=== PATIENT | female | born 1980 | race Hispanic/Latino ===

== ENCOUNTER → 2018-09-17 14:10 | Outpatient (CLI) | payer OTHER, SELFPAY ==
[2018-09-17 15:02] LABS: Add Manual Diff / Slide Review NO; Basophils Absolute Auto 0 /uL (0-100); Basophils Percent Auto 0.2 % (0-2); Eosinophils Absolute Auto 0 /uL (0-450); Eosinophils Percent Auto 0.7 % (2-4); Hematocrit 31.3 % (36-46); Lymphocytes Absolute Auto 1500 /uL (1100-4500); Lymphocytes Percent Auto 25.5 % (25-40); Mean Corpuscular Hemoglobin 23.4 PG (26-34); Mean Corpuscular Volume 73.2 fL (80-100); Monocytes Absolute Auto 500 /uL (0-900); Neutrophils Absolute Auto 3900 /uL (1500-7000); Neutrophils Percent Auto 64.6 % (50-75); Platelet Count 264 X10^3/uL (150-400); Red Blood Cell Count 4.27 X10^6/uL (4.0-5.2)
[2018-09-17 15:12] LABS: Alanine Aminotransferase 11 IU/L (9-52); Albumin Globulin Ratio 1.3 (1.0-2.8); Alkaline Phosphatase 52 U/L (38-126); Amylase 76 U/L (30-110); Aspartate Aminotransferase 16 IU/L (14-36); Bilirubin Total 0.1 mg/dL (0.2-1.3); Blood Urea Nitrogen 14 mg/dL (7-17); Calcium 8.7 mg/dL (8.4-10.2); Carbon Dioxide 27 mmol/L (22-32); Chloride 104 mmol/L (98-107); Estimated Glomerular Filt Rate > 60.0 mL/min (>60); Globulin 3.2 g/dL (1.7-4.1); Glucose 92 mg/dL (70-100); HEMOLYSIS < 15 (0-50); Potassium 3.8 mmol/L (3.4-5.1); Sodium 139 mmol/L (137-145); Total Protein 7.2 g/dL (6.3-8.2)
[2018-09-17 15:44] LABS: Estradiol, Total 41.8 pg/mL
[2018-09-17 15:48] LABS: Pregnancy Test Urine Negative (Negative)
[2018-09-17 16:18] LABS: TSH w/ Reflex to FT4 2.12 uIU/mL (0.47-4.68)
== END ==
PROVIDERS: PCP Family Medicine; Visit Provider Family Medicine
DX: R53.83 Other fatigue (principal); R10.9 Unspecified abdominal pain; N91.5 Oligomenorrhea, unspecified
CPT/HCPCS: 36415; 80053; 81025; 82150; 82670; 83001; 83516; 84443; 85025

== ENCOUNTER → 2019-01-06 08:53 | Outpatient (CLI) | payer OTHER, SELFPAY ==
[2019-01-06 09:55] LABS: Cholesterol 190 mg/dL (140-199); HDL Cholesterol 64 mg/dL (40-60); LDL Cholesterol Calculated 112 mg/dL (<100); Triglycerides 68 mg/dL (35-150)
[2019-01-06 09:59] LABS: Reticulocyte Count, Percent 0.6 % (1.06-2.63)
[2019-01-06 10:07] LABS: HEMOLYSIS < 15 (0-50); Iron 44 ug/dL (37-170)
[2019-01-06 10:18] LABS: Percent Iron Saturation 11 % (15-50); Total Iron Binding Capacity 416 ug/dL (265-497); Transferrin 333 mg/dL (206-381)
[2019-01-06 10:27] LABS: Ferritin 4.7 ng/mL (6.27-137)
[2019-01-06 10:57] LABS: Folate 16.4 ng/mL (2.76-20.0); Vitamin B12 634 pg/mL (239-931)
[2019-01-08 15:30] LABS: Haptoglobin 193 mg/dL (43-212)
== END ==
PROVIDERS: Family Medicine; PCP Family Medicine; Visit Provider Family Medicine
DX: Z13.220 Encounter for screening for lipoid disorders (principal); D50.9 Iron deficiency anemia, unspecified
CPT/HCPCS: 36415; 80061; 82607; 82728; 82746; 83010; 83540; 83550; 85045

== ENCOUNTER → 2019-02-22 10:35 | Outpatient (CLI) | payer OTHER, SELFPAY ==
[2019-02-22 12:52] LABS: Prolactin 6.1 ng/mL (3.0-18.6)
== END ==
PROVIDERS: PCP Family Medicine; Visit Provider Specialist
DX: N91.5 Oligomenorrhea, unspecified (principal)
CPT/HCPCS: 36415; 83001; 84146

== ENCOUNTER → 2020-06-07 10:21 | Outpatient (CLI) | payer OTHER, SELFPAY ==
[2020-06-07] MEDS: COVID-19 VACC #1, MRNA(MOD) 100 MCG/0.5 ML VIAL IM (10:28)
== END ==
PROVIDERS: PCP Family Medicine; Visit Provider Internal Medicine
DX: Z23 Encounter for immunization (principal)
CPT/HCPCS: 0011A; 91301

== ENCOUNTER → 2020-07-05 10:20 | Outpatient (CLI) | payer OTHER, SELFPAY ==
[2020-07-05] MEDS: COVID-19 VACC #2, MRNA(MOD) 100 MCG/0.5 ML VIAL IM (10:28)
== END ==
PROVIDERS: PCP Family Medicine; Visit Provider Internal Medicine
DX: Z23 Encounter for immunization (principal)
CPT/HCPCS: 0012A; 91301

== ENCOUNTER → 2021-01-26 15:06 | Outpatient (CLI) | payer OTHER, SELFPAY ==
[2021-01-28 13:33] LABS: Interpretation Negative (Negative)
== END ==
PROVIDERS: PCP Family Medicine; Referring Provider Family Medicine; Visit Provider Family Medicine
DX: R10.9 Unspecified abdominal pain (principal)
CPT/HCPCS: 83013

== ENCOUNTER 2021-02-27 23:48 | Observation (INO) | payer OTHER, SELFPAY ==
[2021-02-27 23:54] VITALS: BP 100/60; PULSE 50; RESP 24; TEMP 36.7; O2SAT 99
[2021-02-28] VITALS (36 sets, daily range): BP systolic 98–150; BP diastolic 64–86; PULSE 51–92; RESP 10–28; TEMP 36.2–37.2; O2SAT 83–100; BMI 23.8
--- NOTE | 2021-02-28 | PATH_ITS ---
[facility] Accession Number: [id number] . 01 Material submitted: . gallbladder - GALLBLADDER . 02 Diagnosis: Gallbladder, Cholecystectomy: Mild chronic cholecystitis, cholesterolosis, and cholelithiasis. REPLACED BY [facility] 03/05/2021 1649 Local . 02 Electronically signed: . Seema Driver MD, Pathologist NPI- [id number] . 01 Gross description: . The specimen is received in formalin labeled gallbladder and consists of a 7.5 x 5.0 x 4.0 cm intact gallbladder with a 0.3 cm in diameter cystic duct. The serosa is pink-taylor and smooth. Opening reveals green viscous bile with multiple green multifaceted choleliths and cholelith fragments ranging from 0.1 to 1.4 cm. The mucosa is solis-green and velvety and the wall thickness measures 0.1 cm. Ion Implant Machine Operator sections are submitted, to include the en face cystic duct margin (blue) in cassette A1. ([id number]) /REPLACED BY [facility] 03/01/2021 1749 Local . 02 Pathologist provided ICD-10: K81.1 . 02 CPT . 372280 Performed at: 01 [facility] Cytology [address] [facility], [place], [place] [id number] MD Luigi Brady MD Phone: [phone] Performed at: 02 [facility] [address] [place], [place] [id number] MD Mar Hatch MD Phone: [phone]
[2021-02-28] MEDS: KETOROLAC 30 MG/ML VIAL 15 MG IV (00:08)
[2021-02-28] MEDS: ONDANSETRON 4 MG/2 ML INJ IV ×2 (00:08→14:35)
[2021-02-28 00:12] LABS: Add Manual Diff / Slide Review NO; Basophils Absolute Auto 0 /uL (0-100); Basophils Percent Auto 0.1 % (0-2); Eosinophils Absolute Auto 0 /uL (0-450); Eosinophils Percent Auto 0.6 % (2-4); Hematocrit 34.8 % (36-46); Hemoglobin 11.9 g/dL (12.0-16.0); Lymphocytes Absolute Auto 4400 /uL (1100-4500); Lymphocytes Percent Auto 51.3 % (25-40); Mean Corpuscular HGB Conc 34.2 % (30-36); Mean Corpuscular Hemoglobin 28.9 PG (26-34); Mean Corpuscular Volume 84.5 fL (80-100); Monocytes Absolute Auto 700 /uL (0-900); Monocytes Percent Auto 8.3 % (3-14); Neutrophils Absolute Auto 3400 /uL (1500-7000); Neutrophils Percent Auto 39.7 % (50-75); Platelet Count 243 X10^3/uL (150-400); Red Blood Cell Count 4.12 X10^6/uL (4.0-5.2); Red Cell Distribution Width 13.1 % (11.6-14.8); White Blood Cell Count 8.6 X10^3/uL (4.5-11.0)
[2021-02-28 00:19] LABS: Alanine Aminotransferase 35 IU/L (<35); Albumin 4.3 g/dL (3.5-5.0); Albumin Globulin Ratio 1.5 (1.0-2.8); Alkaline Phosphatase 46 U/L (38-126); Aspartate Aminotransferase 54 IU/L (14-36); BUN Creatinine Ratio 26.2 (6-22); Bilirubin Total 0.3 mg/dL (0.2-1.3); Blood Urea Nitrogen 17 mg/dL (7-17); Calcium 9.7 mg/dL (8.4-10.2); Carbon Dioxide 32 mmol/L (22-32); Chloride 102 mmol/L (98-107); Estimated Glomerular Filt Rate > 60.0 mL/min (>60); Globulin 2.9 g/dL (1.7-4.1); Glucose 156 mg/dL (70-100); HEMOLYSIS 16 (0-50); Lipase 123 U/L (23-300); Potassium 3.2 mmol/L (3.4-5.1); Sodium 138 mmol/L (137-145); Total Protein 7.2 g/dL (6.3-8.2)
--- NOTE | 2021-02-28 00:30 | DI.US.S_ITS ---
PROCEDURE: US ABDOMEN LIMITED INDICATIONS: RUQ PAIN TECHNIQUE: Real-time scanning was performed of the abdominal, with image documentation. COMPARISON: None. FINDINGS: Liver: Liver is normal in size and homogeneous in echotexture. Gallbladder: Mildly distended. Multiple mobile gallstones. Normal gallbladder wall thickness. No pericholecystic fluid. Positive sonographic Agustin's sign. Biliary ducts: Intrahepatic bile ducts are non-dilated. Extrahepatic bile duct caliber measures 8 mm. Normal is 6-7 mm or less in diameter, or 10 mm or less post-cholecystectomy. Pancreas: Visualized portions of the pancreas are sonographically normal. IMPRESSION: Prominent gallbladder with multiple gallstones. Positive sonographic Agustin's sign. Findings concerning for acute cholecystitis. Comment: Findings were discussed with Christina Hsieh at the time of dictation. Dictated by: Khurram Foster M.D. on 02/28/2021 at 1:18 Approved by: Khurram Foster M.D. on 02/28/2021 at 1:22
--- NOTE | 2021-02-28 01:39 | ED_ITS ---
HPI - Abdominal Pain General Chief Complaint: Abdominal Pain Stated Complaint: abd pain/bloated x2 hours Time Seen by Provider: 02/28/21 00:29 Source: patient Mode of arrival: Ambulatory History of Present Illness HPI narrative: Patient is a 40-year-old female who is healthy presenting with sudden onset of epigastric pain and right upper quadrant pain. She says she feels bloated and nauseous. Pain is quite intense. No fever or chills. This is never happened to her before. She denies any chest pain. No shortness of breath. Related Data Previous Rx's Medication Instructions Recorded ferrous sulfate 325 mg (65 mg 325 mg PO DAILY #30 tab 01/18/19 iron) tablet fluticasone propionate 50 1 spray INTRANASAL BID #9.9 ml 06/30/20 mcg/actuation nasal spray,suspension (Flonase Allergy Relief) Allergies Allergy/AdvReac Type Severity Reaction Status Date / Time No Known Drug Allergies Allergy Verified 06/07/20 10:25 Review of Systems Review of Systems Narrative: GENERAL: Denies chills, fatigue, malaise, fever, sweats, travel HEENT: Denies sinus pain, ear pain, sore throat, difficulty swallowing, neck pain RESPIRATORY: Denies dyspnea, cough, wheezing, hemoptysis, sputum. CARDIOVASCULAR: Denies chest pain, palpitations, orthopnea, edema GASTROINTESTINAL: See HPI : Denies dysuria, frequency, incontinence, hematuria, urinary retention, flank pain. MUSCULOSKELETAL: Denies weakness, joint pain, or bony pain SKIN: No rash, no erythema, no pruritus NEUROLOGIC: Denies weakness, dizziness, headache, numbness, change in speech, confusion PSYCHIATRIC: No concerning psychosocial issues. 12 point review of systems is negative except for those stated above and HPI Patient History Social History Smoking Status: Never smoker alcohol intake: current (occasionally) substance use type: does not use Smoking Status: Never smoker Exam Initial Vital Signs Initial Vital Signs: Vital Signs Temperature 98.0 F 02/27/21 23:54 Pulse Rate 50 L 02/27/21 23:54 Respiratory Rate 24 02/27/21 23:54 Blood Pressure 100/60 02/27/21 23:54 Pulse Oximetry 99 02/27/21 23:54 GENERAL: Alert 40-year-old female appears uncomfortable and in no acute distress. HEENT: Head atraumatic,EOMI, pupils reactive, face symmetric, moist mucous membr anes CARDIOVASCULAR: Regular rate and rhythm without murmurs, rubs or gallops. RESPIRATORY: Breath sounds equal bilaterally, no wheezes rales or rhonchi. ABDOMEN: Soft, tender right upper quadrant pain is positive Agustin sign tender in epigastric pain no lower abdominal pain yudith] : No CVA tenderness EXTREMITIES: Normal range of motion, no clubbing or edema. Neurovascularly intact NEUROLOGICAL: Alert and oriented x4. With no deficit SKIN: Warm, dry, no laceration, no petechiae, no rashes or lesions. Course Orders Ordered: ED Orders 02/27/21 23:54 EKG-12 Lead Stat 02/27/21 23:57 Complete Blood Count AUTO DIFF Stat Comprehensive Metabolic Panel Stat Lipase Stat 02/28/21 00:30 US abdomen limited Stat Sodium Chloride (Normal Saline 0.9%) 1,000 mls @ 100 mls/hr IV CONT SILVIO Last Admin: 02/28/21 02:16 Dose: 100 mls/hr Documented by: HANDY Discontinued Medications Piperacillin Sod/Tazobactam (Sod 4.5 gm/ Sodium Chloride) 100 mls @ 200 mls/hr IV NOW ONE Stop: 02/28/21 01:55 Last Infusion: 02/28/21 02:52 Dose: 0 mls/hr Documented by: Admin: 02/28/21 02:16 Dose: 200 mls/hr Documented by: HANDY Ketorolac Tromethamine (Ketorolac 30 Mg/Ml Vial) 15 mg IV NOW ONE Stop: 02/28/21 00:03 Last Admin: 02/28/21 00:08 Dose: 15 mg Documented by: ELAINE Ondansetron HCl (Ondansetron 4 Mg/2 Ml Inj) 4 mg IV NOW ONE Stop: 02/28/21 00:03 Last Admin: 02/28/21 00:08 Dose: 4 mg Documented by: ELAINE Vital Signs Vital signs: Vital Signs - 8 hr 02/27/21 23:54 Temperature 98.0 F Pulse Rate 50 L Respiratory Rate 24 Blood Pressure 100/60 Pulse Oximetry 99 MDM - Abdominal Pain Lab Data Result diagrams: 02/27/21 23:57 02/27/21 23:57 Labs: Lab Results 02/27/21 02/27/21 Range/Units 23:57 23:57 WBC 8.6 (4.5-11.0) X10^3/uL RBC 4.12 (4.0-5.2) X10^6/uL Hgb 11.9 L (12.0-16.0) g/dL Hct 34.8 L (36-46) % MCV 84.5 (80-100) fL MCH 28.9 (26-34) PG MCHC 34.2 (30-36) % RDW 13.1 (11.6-14.8) % Plt Count 243 (150-400) X10^3/uL Neut % (Auto) 39.7 L (50-75) % Lymph % (Auto) 51.3 H (25-40) % [place] % (Auto) 8.3 (3-14) % Eos % (Auto) 0.6 L (2-4) % Baso % (Auto) 0.1 (0-2) % Neut # (Auto) 3400 (3300-4575) /uL Lymph # (Auto) 4400 (2481-0435) /uL [place] # (Auto) 700 (0-900) /uL Eos # (Auto) 0 (0-450) /uL Baso # (Auto) 0 (0-100) /uL Sodium 138 (137-145) mmol/L Potassium 3.2 L (3.4-5.1) mmol/L Chloride 102 (98-107) mmol/L Carbon Dioxide 32 (22-32) mmol/L BUN 17 (7-17) mg/dL Creatinine 0.65 (0.52-1.04) mg/dL Estimated GFR > 60.0 (>60) mL/min BUN/Creatinine Ratio 26.2 H (6-22) Glucose 156 H (70-100) mg/dL Calcium 9.7 (8.4-10.2) mg/dL Total Bilirubin 0.3 (0.2-1.3) mg/dL AST 54 H (14-36) IU/L ALT 35 H (<35) IU/L Alkaline Phosphatase 46 (38-126) U/L Total Protein 7.2 (6.3-8.2) g/dL Albumin 4.3 (3.5-5.0) g/dL Globulin 2.9 (1.7-4.1) g/dL Albumin/Globulin Ratio 1.5 (1.0-2.8) Lipase 123 (23-300) U/L Imaging Data US - abdomen: Radiologist's Impression: PROCEDURE:? US ABDOMEN LIMITED ? INDICATIONS:? RUQ PAIN ? TECHNIQUE:? Real-time scanning was performed of the abdominal, with image documentation.? ? COMPARISON:? None. ? FINDINGS:? ? Liver:? Liver is normal in size and homogeneous in echotexture.? ? Gallbladder:? Mildly distended.? Multiple mobile gallstones. Normal gallbladder wall thickness. No pericholecystic fluid.? Positive sonographic Agustin's sign. ? Biliary ducts:? Intrahepatic bile ducts are non-dilated.? Extrahepatic bile duct caliber measures 8 mm.? Normal is 6-7 mm or less in diameter, or 10 mm or less post-cholecystectomy.? ? Pancreas:? Visualized portions of the pancreas are sonographically normal.? IMPRESSION:? Prominent gallbladder with multiple gallstones.? Positive sonographic Agustin's sign.? Findings concerning for acute cholecystitis. ? Comment: Findings were discussed with Christina Hsieh at the time of dictation. ? ? ? Dictated by: Khurram Foster M.D. on 02/28/2021 at 1:18 ? ? Approved by: Khurram Foster M.D. on 02/28/2021 at 1:22 ? ECG Data Interpretation: Normal sinus rhythm rate 50 p.r. interval 164 QRS [address] changes MDM Narrative Medical decision making narrative: The patient is having epigastric and right upper quadrant pain ultrasound does confirm her acute cholecystitis multiple mobile gallstones. Mild elevation in liver enzymes but no elevation in bilirubin normal common bile duct. She is afebrile without leukocytosis. Patient's pain is significantly controlled after 1 dose of toradol 01:53 Dr. Casillas, surgery has been attained patient's symptoms test results agrees with admission and surgery. Requests Anastasia Discharge Plan Departure Patient Disposition: Admitted to Surgery Clinical Impression: Cholecystitis Admit Date/Time: 02/28/21 02:34 Admit Provider: Jonh Portillo
[2021-02-28] MEDS: SODIUM CHLORIDE 0.9% 1,000 ML 100 ML IV (02:16)
[2021-02-28] MEDS: PIPERACILLIN/TAZO 4.5 GM in SODIUM CHLORIDE 0.9% 100 ML 200 ML IV (02:16)
--- NOTE | 2021-02-28 02:53 | PC.NURSE ---
She is now on a floor bed,pain control stated to me,NPO.
[2021-02-28 06:36] LABS: COVID19 -Nasal RAPID Negative (Negative)
--- NOTE | 2021-02-28 11:31 | PC.NURSE ---
Report given to NETWORKING SPECIALIST @ 1130. Pt being transferred to OR in at this time.
[2021-02-28] MEDS: LACTATED RINGERS 1,000 ML 42 ML IV (11:50)
--- NOTE | 2021-02-28 12:01 | P.HP_ITS ---
History of Present Illness History of Present Illness Chief complaint: abd pain/bloated x2 hours Narrative: 40-year-old woman who presented to the of the emergency room for evaluation of acute abdominal pain. She has had previous episodes of biliary colic however she has a severe episode of epigastric pain/right upper quadrant pain associated with nausea vomiting and unremitting. At the emergency room she was afebrile WBC 9 total bilirubin 0.3, AST 54, ALT 35. Ultrasound demonstrated gallstones she had a positive Agustin's sign on examination. She was started on Zosyn and with pain medication her abdominal pain significantly improved. Patient History Family & Social History Tobacco & Substance use: Smoking Status Never smoker alcohol intake current Meds Home Medications and Allergies Home Medications Medication Instructions Recorded Confirmed Type magnesium 1 tab PO DAILY 02/28/21 02/28/21 History multivitamin 1 cap DAILY 02/28/21 02/28/21 History Allergies Allergy/AdvReac Type Severity Reaction Status Date / Time No Known Drug Allergies Allergy Verified 02/28/21 11:45 Exam Vital Signs (past 8 hours): - 02/28/21 04:30 02/28/21 05:00 02/28/21 05:16 Temperature Pulse Rate 56 L 59 L 77 Respiratory Rate 12 13 28 H Blood Pressure 98/64 Pulse Oximetry 83 L 02/28/21 05:30 02/28/21 05:59 02/28/21 06:00 Temperature Pulse Rate 56 L 80 54 L Respiratory Rate 12 18 13 Blood Pressure 98/64 Pulse Oximetry 97 95 98 02/28/21 06:32 02/28/21 07:00 02/28/21 07:30 Temperature Pulse Rate 73 60 54 L Respiratory Rate 11 L 17 Blood Pressure Pulse Oximetry 83 L 97 99 02/28/21 08:00 02/28/21 08:30 02/28/21 09:00 Temperature Pulse Rate 54 L 57 L 60 Respiratory Rate 10 L 19 27 H Blood Pressure Pulse Oximetry 97 96 99 02/28/21 09:30 02/28/21 10:00 02/28/21 10:30 Temperature Pulse Rate 62 51 L 55 L Respiratory Rate 28 H 18 17 Blood Pressure Pulse Oximetry 99 99 98 02/28/21 11:00 02/28/21 11:11 02/28/21 11:53 Temperature 98.4 F Pulse Rate 55 L 54 L 65 Respiratory Rate 22 15 14 Blood Pressure 115/66 107/68 Pulse Oximetry 99 100 100 Oxygen Delivery Method Room Air Narrative Exam Narrative: General adult female alert oriented no acute distress Chest nonlabored respirations Abdomen positive Agustin sign. scar. Extremities warm well perfused Objective Labs Result Diagrams: 02/27/21 23:57 02/27/21 23:57 Labs: Laboratory Results - last 24 hr 02/27/21 02/27/21 02/28/21 23:57 23:57 06:10 WBC 8.6 RBC 4.12 Hgb 11.9 L Hct 34.8 L MCV 84.5 MCH 28.9 MCHC 34.2 RDW 13.1 Plt Count 243 Neut % (Auto) 39.7 L Lymph % (Auto) 51.3 H [place] % (Auto) 8.3 Eos % (Auto) 0.6 L Baso % (Auto) 0.1 Neut # (Auto) 3400 Lymph # (Auto) 4400 [place] # (Auto) 700 Eos # (Auto) 0 Baso # (Auto) 0 Sodium 138 Potassium 3.2 L Chloride 102 Carbon Dioxide 32 BUN 17 Creatinine 0.65 Estimated GFR > 60.0 BUN/Creatinine Ratio 26.2 H Glucose 156 H Calcium 9.7 Total Bilirubin 0.3 AST 54 H ALT 35 H Alkaline Phosphatase 46 Total Protein 7.2 Albumin 4.3 Globulin 2.9 Albumin/Globulin Ratio 1.5 Lipase 123 SARS-CoV-2 (PCR) Negative Assessment & Plan Assessment and plan (1) Cholecystitis: Status: Acute Assessment & Plan narrative: 40-year-old woman admitted from the emergency room with gallstones and acute cholecystitis. We discussed management of acute cholecystitis and recommended that we proceed with laparoscopic cholecystectomy. Technical details of the operation were discussed with the patient. Operative risks including bleeding infection damage to surrounding structures conversion open bile leak were discussed. Her questions have been answered and she is in agreement with this plan will proceed. Time Spent With Patient Critical Care time: I spent a total of [] minutes of critical care time on this patient's care today; this time is exclusive of procedural time.
[2021-02-28] MEDS: CEFAZOLIN 2 GM/20 ML SYRINGE IV (12:53)
--- NOTE | 2021-02-28 13:11 | SUR.OPER ---
Supine on padded OR bed, head on pillow, safety belt at thigh, left arm padded and tucked at side. Right arm secured on padded arm board <90 degrees abduction. Legs uncrossed. Padded footboard in place. Tape over blanket to secure lower legs.
[2021-02-28] MEDS: BUPIVACAINE 0.25% (PF) VIAL 30 ML INJ (13:20)
--- NOTE | 2021-02-28 14:03 | PM.OP.1 ---
Operative Date/Time/Diagnoses Date of procedure: 02/28/21 Time of procedure: 14:03 Pre-op diagnosis: Acute cholecystitis Post-op diagnosis: same Procedure & Clinicians Procedure: Laparoscopic cholecystectomy Same procedure as scheduled: Yes Indications: Acute cholecystitis with gallstones Surgeon: Korey Stark Yes if Unassisted: Yes Anesthesia Type: General Operative Notes Findings: Acute cholecystitis Specimen(s): other (Gallbladder) Estimated Blood Loss (mL): 10 Procedure in detail: The patient was placed supine on the table and bilateral lower extremity compression devices were applied. Anesthesia was induced they were intubated with an endotracheal tube and received 2g of Ancef. A time-out was performed. They were prepped and draped in sterile fashion. An infraumbilical incision was made, the umbilical stalk was elevated and the fascia was sharply incised entering the abdomen atraumatically. A blunt tip 12mm balloon trocar was then inserted, pneumoperitoneum was established and inspection of the abdomen demonstrated no evidence of injury. They were placed head up and right side up and then a 11 mm port was placed high in the epigastrium and two 5mm in the right upper quadrant. The gallbladder was grasped by the fundus and retracted over the liver and retracted laterally by the infundibulum. The gallbladder was tense and distended consistent with acute cholecystitis. Using electrocautery the lateral plane between the gallbladder and the liver was opened towards the fundus. The gallbladder was then retracted laterally and the medial plane was developed in the same manner. With the gallbladder mobilized the bottom of the cystic plate was visualized. The hepatocystic triangle was meticulosly skeletonized from both the front and the back. Only two structures were then clearly seen entering the gallbladder the cystic duct and the cystic artery. With the critical view of safety fully established the cystic duct was clipped twice proximally and once distally using the 10 mm Weck hemoclip applied under direct visualization and then sharply divided. The cystic artery was divided in the same fashion. The gallbladder was removed from the liver bed using electro cautery. The liver bed was then inspected for hemostasis and this was achieved. The abdomen was irrigated with sterile saline and inspection was made that showed the clips in good position. The specimen was removed using Endo-Catch. The abdomen was desufflated. The umbilical fascia was closed with 0 Vicryl in a [id number] fashion under direct visualization. Skin incisions were irrigated and closed with 4-0 Monocryl. 30 ml of 0.25% bupivacaine was infiltrated into the subcutaneous tissue of the incisions. The wounds were sealed with Dermabond. Patient emerged from anesthesia was extubated and transferred to recovery in stable condition. The sponge and instrument count at the end of the operation was correct. Complications: none Post-operative Condition: stable Disposition: Acute Care
[2021-02-28] MEDS: HYDROMORPHONE 2 MG INJ IV ×2 (14:40→15:03)
[2021-02-28] MEDS: METOCLOPRAMIDE 10 MG/2 ML INJ IV (14:55)
--- NOTE | 2021-02-28 15:06 | SUR.PHASEI ---
1505 hrs: Pt still nauseous s/p Zofran and Reglan administration. QueaseEase aromatherapy applied.
[2021-02-28] MEDS: ACETAMINOPHEN 325 MG TABLET 650 MG PO (15:24)
--- NOTE | 2021-02-28 17:12 | PC.NURSE ---
Pt to room 208 via gurney from PACU. Pt awake, alert and oriented. States she is not having pain but is feeling nauseated after the ride on the gurney from the OR. Nausea abated and Pt requested something to eat. VS stable. SCD's on and running. Pt Spouse at the bedside. Pt denies needs at this time and states she would like to go home in a little while. Dr. Balderas in to see Pt and wrote discharge orders. Pt oriented to room, call light, bed controls and tv controls. Pt agrees to call for assistance as needed.
[2021-02-28] MEDS: ONDANSETRON 4 MG ODT SL (18:55)
[2021-02-28] MEDS: OXYCODONE IR 5 MG TABLET PO (18:55)
[2021-02-28] MEDS: SIMETHICONE 80 MG TABLET PO (18:55)
--- NOTE | 2021-02-28 22:54 | PC.NURSE ---
Patient ready to discharge, spouse present, iv removed and patient up and dressed. GUN REPAIR CLERK reported patient vomited, spoke with patient and she said that she did still have nausea and was vomiting. Spoke with Dr. Balderas and he gave order for her to stay one more night; ok to leave iv out; if vomiting continues into the night give PRN fluids, start NS @ 125/hr.
[2021-03-01 05:16] VITALS: BP 108/60; PULSE 67; RESP 16; TEMP 37.7; O2SAT 96
[2021-03-01 08:42] VITALS: BP 112/70; PULSE 60; RESP 16; TEMP 36.9; O2SAT 98
--- NOTE | 2021-03-01 09:59 | PC.NURSE ---
Addendum entered by Clarisa Houston R.N. 03/01/21 10:19: all discharge instructions was done yesterday. unchanged today. Original Note: pt tolerated general diet. she has been independent in her room and ambulating.
--- NOTE | 2021-03-01 10:33 | CM.IDA ---
Initial DCP Assessment Note Pt is a 40 yo female, resident of [place], now POD#1 from [facility] [address] Dr Balderas PCP: Latonya Hayes Payer: Alessandro Reviewed chart, pt discussed in multidisciplinary rounds this morning. Therapy has cleared pt for return home w/family to assist and pt has planned for home, DC order from Ortho has already been initiated this morning. No needs expected from DC planning team although will remain available in case this changes today. VIN Powell
== END 2021-03-01 10:07 | disposition home or self-care (01) ==
LOC: ED 02-28 01:53 → AC 02-28 02:34
PROVIDERS: Surgery; Admitting Provider Surgery; Emergency Provider Emergency Medicine; PCP Family Medicine; Referring Provider Emergency Medicine; Visit Provider Surgery
PROC: 0FT44ZZ Resection of Gallbladder, Percutaneous Endoscopic Approach (ICD-10-PCS; CPT 47562; principal; 2021-02-28 12:00)
DX: K80.10 Calculus of gallbladder with chronic cholecystitis without obstruction (principal); Z20.822 Contact with and (suspected) exposure to COVID-19
CPT/HCPCS: 47562; 36415; 76705; 80053; 81003; 81025; 83690; 85025; 87635; 93005; 96361; 96365; 96375; 96376; 99220; 99284; C9803; G0378; J0690; J1100; J1170; J1885; J2250; J2405; J2543; J2704; J2765; J3010

== ENCOUNTER → 2021-11-28 10:49 | Outpatient (CLI) | payer OTHER, SELFPAY ==
[2021-03-07 11:44] VITALS: BMI 23.8
--- NOTE | 2021-11-28 | DI.CT.S_ITS ---
PROCEDURE: CT SINUS SCREEN WO CON INDICATIONS: Chronic pansinusitis/headache TECHNIQUE: Noncontrast 3.0 mm axial images acquired from the frontal sinuses to the mid-sella, with coronal and sagittal reformats. For radiation dose reduction, the following was used: automated exposure control, adjustment of mA and/or kV according to patient size. COMPARISON: None. FINDINGS: Image quality: Excellent. Maxillary Sinuses: No bony remodeling or destruction. There is trace right and mild left mucosal thickening. Ethmoid Air Cells: No bony remodeling or destruction. There is trace mucosal thickening bilaterally. Sphenoid Sinuses: No bony remodeling or destruction. Trace debris is present within the left sphenoid sinus. Frontal Sinuses: No bony remodeling or destruction. Sinuses are clear. Ostiomeatal Complexes: No Troy cells. The bilateral ostiomeatal complexes are partially obstructed by mild mucosal thickening. Miscellaneous: Visualized intra-orbital contents are normal. No carlita bullosa or paradoxical turbinate curvature. No nasal septal deviation. IMPRESSION: 1. Mild mucosal thickening of the maxillary sinuses and ethmoid air cells as well as some mucosal thickening at the ostiomeatal complexes suggesting partial obstruction. 2. No bony remodeling or destruction. Dictated by: Esha Sow M.D. on 11/28/2021 at 11:14 Approved by: Esha Sow M.D. on 11/28/2021 at 11:24
== END ==
PROVIDERS: PCP Family Medicine; Referring Provider Otolaryngology; Visit Provider Otolaryngology
DX: J32.4 Chronic pansinusitis (principal); R51.9 Headache, unspecified
CPT/HCPCS: 70486

== ENCOUNTER → 2022-11-21 10:45 | Outpatient (CLI) | payer OTHER, SELFPAY ==
[2021-03-07 11:44] VITALS: BMI 23.8
[2022-11-21 11:44] LABS: Add Manual Diff / Slide Review NO; Basophils Absolute Auto 0 /uL (0-100); Basophils Percent Auto 0.3 % (0-2); Eosinophils Absolute Auto 0 /uL (0-450); Eosinophils Percent Auto 0.7 % (2-4); Hematocrit 38.1 % (36-46); Hemoglobin 12.8 g/dL (12.0-16.0); Lymphocytes Absolute Auto 2200 /uL (1100-4500); Lymphocytes Percent Auto 39.3 % (25-40); Mean Corpuscular HGB Conc 33.4 % (30-36); Mean Corpuscular Hemoglobin 28.1 PG (26-34); Monocytes Absolute Auto 400 /uL (0-900); Monocytes Percent Auto 7.6 % (3-14); Neutrophils Absolute Auto 2900 /uL (1500-7000); Neutrophils Percent Auto 52.1 % (50-75); Platelet Count 222 X10^3/uL (150-400); Red Blood Cell Count 4.54 X10^6/uL (4.0-5.2); Red Cell Distribution Width 13.4 % (11.6-14.8); White Blood Cell Count 5.6 X10^3/uL (4.5-11.0)
[2022-11-21 12:17] LABS: Iron 129 ug/dL (37-170)
[2022-11-21 12:48] LABS: TSH w/ Reflex to FT4 2.53 uIU/mL (0.47-4.68)
[2022-11-21 13:06] LABS: Vitamin B12 554 pg/mL (239-931)
[2022-11-21 16:02] LABS: Vitamin D 25 Hydroxy (D3) 29.7 ng/mL (30.0-100.0)
== END ==
PROVIDERS: PCP Family Medicine; Referring Provider Family Medicine; Visit Provider Family Medicine
DX: D64.9 Anemia, unspecified (principal); R53.83 Other fatigue
CPT/HCPCS: 36415; 82306; 82607; 83540; 84443; 85025

== ENCOUNTER → 2023-08-20 15:49 | Outpatient (CLI) | payer OTHER, SELFPAY ==
[2021-03-07 11:44] VITALS: BMI 23.8
[2023-08-20 16:44] LABS: Add Manual Diff / Slide Review NO; Basophils Absolute Auto 0 /uL (0-100); Basophils Percent Auto 0.4 % (0-2); Eosinophils Absolute Auto 100 /uL (0-450); Eosinophils Percent Auto 0.9 % (2-4); Hematocrit 36.8 % (36-46); Hemoglobin 12.4 g/dL (12.0-16.0); Lymphocytes Absolute Auto 2500 /uL (1100-4500); Lymphocytes Percent Auto 34.7 % (25-40); Mean Corpuscular HGB Conc 33.7 % (30-36); Mean Corpuscular Hemoglobin 28.4 PG (26-34); Mean Corpuscular Volume 84.4 fL (80-100); Monocytes Absolute Auto 600 /uL (0-900); Neutrophils Absolute Auto 3900 /uL (1500-7000); Platelet Count 232 X10^3/uL (150-400); Red Blood Cell Count 4.36 X10^6/uL (4.0-5.2); Red Cell Distribution Width 13.5 % (11.6-14.8); White Blood Cell Count 7.2 X10^3/uL (4.5-11.0)
[2023-08-20 16:54] LABS: Hemoglobin A1C% w Est Avg Glu 5.6 % (4.0-6.0)
[2023-08-20 17:13] LABS: Iron 82 ug/dL (37-170)
[2023-08-20 18:04] LABS: Vitamin B12 489 pg/mL (239-931)
== END ==
PROVIDERS: PCP Family Medicine; Referring Provider Family Medicine; Visit Provider Family Medicine
DX: G62.9 Polyneuropathy, unspecified (principal); E66.3 Overweight
CPT/HCPCS: 36415; 82607; 83036; 83540; 85025

== ENCOUNTER → 2023-11-27 09:13 | Outpatient (CLI) | payer OTHER, SELFPAY ==
[2021-03-07 11:44] VITALS: BMI 23.8
[2023-11-27 09:56] LABS: Add Manual Diff / Slide Review NO; Basophils Absolute Auto 0 /uL (0-100); Basophils Percent Auto 0.2 % (0-2); Eosinophils Absolute Auto 0 /uL (0-450); Eosinophils Percent Auto 0.8 % (2-4); Hematocrit 38.7 % (36-46); Hemoglobin 13.1 g/dL (12.0-16.0); Lymphocytes Absolute Auto 1600 /uL (1100-4500); Mean Corpuscular Hemoglobin 28.7 PG (26-34); Mean Corpuscular Volume 84.6 fL (80-100); Monocytes Absolute Auto 400 /uL (0-900); Monocytes Percent Auto 8.6 % (3-14); Neutrophils Absolute Auto 2700 /uL (1500-7000); Neutrophils Percent Auto 56.4 % (50-75); Platelet Count 222 X10^3/uL (150-400); Red Blood Cell Count 4.58 X10^6/uL (4.0-5.2); Red Cell Distribution Width 13.8 % (11.6-14.8); White Blood Cell Count 4.8 X10^3/uL (4.5-11.0)
[2023-11-27 10:30] LABS: Follicle Stimulating Hormone 49.9 mIU/mL; Free T3, Triiodothyronine Free 3.39 pg/mL (2.77-5.27); Free T4, Direct Thyroxine 0.74 ng/dL (0.78-2.19); Progesterone, Total 0.59 ng/mL
[2023-11-27 10:44] LABS: Thyroid Stimulating Hormone 2.75 uIU/mL (0.47-4.68)
[2023-11-27 10:45] LABS: Estradiol, Total 12.5 pg/mL
[2023-11-27 10:46] LABS: Cortisol AM (Before 10AM) 5.09 ug/dL (4.46-22.7)
[2023-11-27 10:50] LABS: Ferritin 34 ng/mL (6-137)
[2023-11-28 07:36] LABS: Thyroid Peroxidase Antibodies 14 IU/mL (0-34)
== END ==
PROVIDERS: PCP Family Medicine; Referring Provider Naturopath; Visit Provider Naturopath
DX: E28.310 Symptomatic premature menopause (principal); J32.9 Chronic sinusitis, unspecified; J30.89 Other allergic rhinitis; G44.219 Episodic tension-type headache, not intractable
CPT/HCPCS: 36415; 82533; 82670; 82728; 83001; 84144; 84432; 84439; 84443; 84481; 84630; 85025; 86376

== ENCOUNTER → 2024-01-03 10:03 | Outpatient (CLI) | payer OTHER, SELFPAY ==
[2021-03-07 11:44] VITALS: BMI 23.8
--- NOTE | 2024-01-03 10:05 | DI.MG.S_ITS ---
BILATERAL DIGITAL SCREENING MAMMOGRAM 3D/2D WITH CAD: 01/03/2024 CLINICAL: Routine screening. Baseline exam. No prior exams were available for comparison. The breasts are heterogeneously dense, which may obscure small masses (category c / 51-75% glandular tissue). Current study was also evaluated with a Computer Aided Detection (CAD) system. No significant masses, calcifications, or other findings are seen in either breast. IMPRESSION: NEGATIVE There is no mammographic evidence of malignancy. A 1 year screening mammogram is recommended. Based on the Tyrer Cuzick model (a risk assessment model) the patient's lifetime risk is 10.7% and her 10 year risk is 1.9%. According to the ACR, ACS, and NCCN guidelines, an annual breast MRI exam along with mammogram is recommended if the patient's lifetime risk is 20% or greater. This exam was interpreted at Station ID: [id number]. NOTE: For mammograms, a report in lay terms will be sent to the patient. Approximately 15% of breast malignancies will not be visualized mammographically. In the management of a palpable breast mass, a negative mammogram must not discourage biopsy of a clinically suspicious lesion. Electronically Signed By: Sergio vargas/maddy:01/05/2024 12:12:53 letter sent: Normal Exam ACR BI-RADS Category 1: Negative
== END ==
PROVIDERS: PCP Family Medicine; Referring Provider Family Medicine; Visit Provider Family Medicine
DX: Z12.31 Encounter for screening mammogram for malignant neoplasm of breast (principal); R92.333 Mammographic heterogeneous density, bilateral breasts
CPT/HCPCS: 77063; 77067

== ENCOUNTER → 2024-02-27 07:26 | Outpatient (CLI) | payer OTHER, SELFPAY ==
[2021-03-07 11:44] VITALS: BMI 23.8
[2024-02-27 09:06] LABS: Adenovirus Not Detected (Not Detect); B. parapertussis Not Detected (Not Detecte); Bordetella pertussis Not Detected (Not Detect); Chlamydophila pneumoniae Not Detected (Not Detect); Coronavirus 229E Not Detected (Not Detect); Coronavirus HKU1 Not Detected (Not Detect); Coronavirus NL 63 Not Detected (Not Detect); Coronavirus OC43 Not Detected (Not Detect); Human Metapneumovirus Not Detected (Not Detect); Human Rhinovirus/Enterovirus Not Detected (Not Detect); Influenza A Not Detected (Not Detect); Influenza B Not Detected (Not Detect); Mycoplasma pneumoniae Not Detected (Not Detect); Parainfluenza Virus 1 Not Detected (Not Detect); Parainfluenza Virus 2 Not Detected (Not Detect); Parainfluenza Virus 3 Not Detected (Not Detect); Parainfluenza Virus 4 Not Detected (Not Detect); Respiratory Syncytial Virus Not Detected (Not Detect); SARS- CoV-2 Not Detected (Not Detecte)
== END ==
PROVIDERS: PCP Family Medicine; Visit Provider Nurse Practitioner Family
DX: R05.1 Acute cough (principal)
CPT/HCPCS: 87633

== ENCOUNTER → 2024-02-27 09:15 | Outpatient (CLI) | payer OTHER, SELFPAY ==
[2021-03-07 11:44] VITALS: BMI 23.8
--- NOTE | 2024-02-27 09:16 | DI.RAD.S_ITS ---
PROCEDURE: XR CHEST 2V INDICATIONS: r/o PNA TECHNIQUE: 2 views of the chest were acquired. COMPARISON: None. FINDINGS: Surgical changes and devices: None. Lungs and pleura: Lungs are clear. No pleural effusions or pneumothorax. Mediastinum: Mediastinal contours are normal. Heart size is normal. Bones and chest wall: No suspicious bony abnormalities. Soft tissues appear unremarkable. IMPRESSION: No acute cardiopulmonary abnormality is seen. Dictated by: Joshua Mejias M.D. on 02/27/2024 at 9:54 Approved by: Joshua Mejias M.D. on 02/27/2024 at 9:55
== END ==
PROVIDERS: PCP Family Medicine; Referring Provider Nurse Practitioner Family; Visit Provider Nurse Practitioner Family
DX: R05.1 Acute cough (principal)
CPT/HCPCS: 71046; 87633

== ENCOUNTER → 2024-03-20 09:30 | Outpatient (CLI) | payer OTHER, SELFPAY ==
[2021-03-07 11:44] VITALS: BMI 23.8
[2024-03-20 10:52] LABS: Free T3, Triiodothyronine Free 3.19 pg/mL (2.77-5.27); Free T4, Direct Thyroxine 1.19 ng/dL (0.78-2.19)
[2024-03-20 11:06] LABS: Thyroid Stimulating Hormone 1.23 uIU/mL (0.47-4.68)
== END ==
PROVIDERS: PCP Family Medicine; Referring Provider Family Medicine; Visit Provider Family Medicine
DX: E03.9 Hypothyroidism, unspecified (principal)
CPT/HCPCS: 36415; 84439; 84443; 84481

== ENCOUNTER 2024-03-23 14:43 | Day surgery (SDC) | payer OTHER, SELFPAY ==
[2021-03-07 11:44] VITALS: BMI 23.8
[2024-03-23 14:57] VITALS: BP 100/65; PULSE 59; RESP 14; TEMP 36.2; O2SAT 100
--- NOTE | 2024-03-23 15:01 | PM.HP.1 ---
History of Present Illness History of Present Illness Date Patient Seen: 03/23/24 Time Patient Seen: 15:01 Chief complaint: Screening Colonoscopy Narrative: Jessica is a 43 year old woman here for colonoscopy. She has never had one before. No family history of colon cancer. [facility] Medical History (Updated 03/23/24 @ 15:02 by Jonh Portillo MD) Hypothyroidism Social History household members: spouse Smoking Status: Never smoker alcohol intake: current substance use type: does not use Meds Home Medications and Allergies Home Medications Medication Instructions Recorded Confirmed Type magnesium 1 tab PO DAILY 02/28/21 03/22/24 History multivitamin 1 cap DAILY 02/28/21 03/22/24 History levothyroxine 75 mcg tablet 75 mcg PO DAILY 12/20/23 03/22/24 History peg 3350-electrolytes 236 240 ml PO Q10M #4,000 mL 02/20/24 03/22/24 Rx gram-22.74 gram-6.74 gram-5.86 gram solution (Golytely) estradiol 10 mcg vaginal tablet 10 mcg vaginal 2XW #30 tabs 03/22/24 03/22/24 Rx (Vagifem) estradiol 10 mcg vaginal tablet 10 mcg vaginal DAILY 2 weeks #14 03/22/24 03/22/24 Rx (Vagifem) tabs phenylephrine HCl 0.25 % rectal 1 supp OR BEDTIME PRN hemorrhoids 03/22/24 03/22/24 Rx suppository (Preparation H (pe)) #12 ea Allergies Allergy/AdvReac Type Severity Reaction Status Date / Time No Known Drug Allergies Allergy Verified 03/22/24 10:21 Exam Const General: healthy appearing Resp Effort & Inspection: normal respiratory effort Assessment & Plan Assessment and plan (1) Colon cancer screening: Status: Acute Plan Colonoscopy Time-Based Coding :: [TOTAL MINUTES] spent with patient and on the chart (including review of chart, obtaining history, exam, reviewing outside data, placing orders, documenting exam and treatment plan, and counseling patient) on [DATE].
--- NOTE | 2024-03-23 15:35 | PM.OP.COLON ---
Operative Date/Time/Diagnoses Date of procedure: 03/23/24 Time of procedure: 15:35 Pre-op diagnosis: Colon cancer screening Post-op diagnosis: same Procedure & Clinicians Study performed: Colonoscopy Same procedure as scheduled: Yes Surgeon: Jonh Portillo Procedure Notes Procedure in detail: Surgeon: Jonh Portillo MD Anesthesia: Karly Pelaez DO Procedure: The patient was brought to the endoscopy suite, placed in left lateral decubitus position. The patient was connected to monitoring devices. A time-out was performed. Sedation was administered. Once the patient was adequately sedated, a digital rectal exam was performed and was normal. The scope was then inserted and advanced to the cecum where the appendiceal orifice was identified and photographed. The scope was then slowly withdrawn over greater than 6 minutes. The mucosa was thoroughly inspected. No abnormalities were found. The scope was retroflexed in the rectum. The scope was straightened and removed. The patient was awakened and brought to recovery. Scope withdrawal time: 7 minutes Sedation time: 12 minutes EBL: 0 Findings: Normal colon Post-procedure Recommendations: Colonoscopy in 10 years Disposition: PACU
[2024-03-23 15:37] VITALS: BP 86/51; PULSE 63; RESP 13; TEMP 36.2; O2SAT 96
[2024-03-23 15:41] VITALS: BP 94/54; PULSE 63; RESP 14; O2SAT 96
[2024-03-23 15:45] VITALS: BP 85/59; PULSE 65; RESP 14; TEMP 36.1; O2SAT 95
[2024-03-23 15:46] VITALS: BP 95/60
== END 2024-03-23 15:53 | disposition home or self-care (01) ==
PROVIDERS: Surgery; PCP Family Medicine; Referring Provider Surgery; Visit Provider Surgery
PROC: 0DJD8ZZ Inspection of Lower Intestinal Tract, Via Natural or Artificial Opening Endoscopic (ICD-10-PCS; CPT 45378; principal; 2024-03-23 15:45)
DX: Z12.11 Encounter for screening for malignant neoplasm of colon (principal); E03.9 Hypothyroidism, unspecified
CPT/HCPCS: G0121; J2704